=== PATIENT | female | born 1990 | race Caucasian/White ===

== ENCOUNTER 2023-10-09 09:30 | Emergency (ER) | payer BC, SELFPAY ==
[2023-10-09 09:40] VITALS: BP 119/69
[2023-10-09 09:56] LABS: % Basophils 0.9 % (0-2); % Eosinophils 1.5 % (0-6); % Immature Granulocytes 0.2 % (0-0.5); % Monocytes 8.9 % (1.7-9.3); % Neutrophils 46.5 % (42.2-75.2); Absolute Eosinophils 0.1 10^3/uL (0-0.7); Absolute Lymphocytes 1.9 10^3/uL (1.2-3.4); Absolute Monocytes 0.4 10^3/uL (0.1-0.6); Absolute Neutrophils 2.1 10^3/uL (1.4-6.5); Hematocrit 38.7 % (37.0-47.0); Hemoglobin 13.7 g/dL (12.0-16.0); Mean Corp Hgb Conc. 35.4 g/dL (33.0-37.0); Mean Corpuscular Hgb 31.1 pg (27.0-31.0); Mean Platelet Volume 9.9 fL (7.4-10.4); Nucleated Red Blood Cells % 0 %; Platelet Count 187 10^3/uL (130-400); Red Cell Dist. Width 12.1 % (11.5-14.5); White Blood Cell Count 4.6 10^3/uL (4.8-10.8)
[2023-10-09 10:09] LABS: HCG, Serum Qualitative Screen Negative
[2023-10-09 10:27] LABS: ALT (SGPT) 14 U/L (0-35); AST (SGOT) 21 U/L (14-36); Albumin 4.4 g/dl (3.5-5.0); Alkaline Phosphatase 52 U/L (38-126); Blood Urea Nitrogen 14 mg/dl (7-17); Calcium 9.3 mg/dl (8.4-10.2); Carbon Dioxide 25 mmol/L (22-30); Chloride 103 mmol/L (98-107); Glucose 95 mg/dl (70-99); Potassium 3.9 mmol/L (3.5-5.1); Sodium 133 mmol/L (135-145); Total Bilirubin 0.6 mg/dl (0.2-1.3); eGFR > 60.00
--- NOTE | 2023-10-09 14:39 | ED.GENMED ---
History of Present Illness
General
Chief Complaint: Headache
Source: patient
Exam Limitations: none
Time Seen by Provider: 10/09/23 11:29
Nursing documentation reviewed up to this point in time: agreed with
Travel History
Have you had any contact with someone who has COVID-19?: No
Do you have any symptoms of coronavirus? Fever > 100 degrees, chills, cough, shortness of breath, sore throat, loss of taste or smell, muscle aches, or headache?: No
History of Present Illness
History of Present Illness:
Patient is a 33-year-old female who presents to the emergency department complaining of vertigo that seems to be constant and pressure and fullness in her head. Patient denies any visual or speech difficulties. Patient said nausea but no vomiting.
Patient denies any nasal congestion, sore throat, fever or chills. Patient denies any tenderness or decreased hearing. This has been going on for the last 6 days continued. Patient does feel off balance like she has been on a boat. Patient has
minimal photophobia. Patient has a history of migraines and gets them about once a year. Patient had 1 about 10 days ago and it lasted till 1 week ago. Patient does not take anything for them. However since that time she has had the same
symptoms.
Past History
Past History
ED Past Medical History: Other (Migraine)
ED Past Surgical History: Tonsilectomy
Social History
Tobacco: Non-smoker
Personal:
Living: with family
Review of Systems
Review of Systems
All Other Systems: ROS reviewed and negative except as documented in HPI and ROS
Constitutional: Reports no symptoms
EENT: Reports other (Pressure and head)
Respiratory: Reports no symptoms
Cardiac: Reports no symptoms
ABD/GI: Reports nausea; Denies abdominal pain, vomiting, diarrhea, constipated or anorexia
Musculoskeletal: Reports no symptoms
Skin: Reports no symptoms
Neurological: Reports dizzy; Denies headache, weakness or numbness
Hematologic/Lymphatic: Reports no symptoms
Psychiatric: Reports no symptoms
Phy Exam
Physical Exam
Physical Exam:
Physical Exam
General: No apparent distress, alert and appropriate, well nourished, well hydrated
HENT: Normocephalic, supple with no lymphadenopathy, no thyromegaly. TMs intact and clear. Oropharynx clear. Nares patent and clear
Eyes: Clear sclera, conjuctiva without injection, extraocular muscles intact, pupils equal reactive to light, no nystagmus
Heart: Regular rhythm and rate. No S3, S4. No murmur. No NVD, bruit
Lungs: No respiratory distress, no stridor, lung sounds clear and equal bilaterally
Abdomen: Soft, nontender, BS good
Neuro: Alert and oriented x 3, CN II - XII intact, no motor focality, no cerebellar dysfunction
Skin: no rash
Psychiatric: well kept. interactive and cooperative
Extremities: No edema, cyanosis, tenderness
Scores
Heart Failure Risk
Heart Failure Risk Score: Not Applicable
Heart Score for Chest Pain Patients
STEMI patient?: Not applicable
Withdrawal Assessment of Alcohol
Withdrawal Assessment Completed?: Not applicable
Course
Orders/Labs/Results
Orders:
Orders
10/09/23 09:43
Test Result ONCE
10/09/23 09:49
Complete Blood Count/With Diff Urgent
Comprehensive Metabolic Panel Urgent
HCG, Serum Qualitative Screen Urgent
10/09/23 12:02
CT Head W/o Iv Contrast Urgent
Comment:
Reason For Exam: vertigo and overall fogginess
Abnormal Lab Results
10/09/23
09:49
WBC 4.6 L 10^3/uL
(4.8-10.8)
MCH 31.1 H pg
(27.0-31.0)
Sodium 133 L mmol/L
(135-145)
10/09/23 09:49
10/09/23 09:49
Vital Signs
Initial and Last Documented VS:
Initial Vital Signs
Temp Pulse Resp BP Pulse Ox
97.7 F 54 16 119/69 100
10/09/23 09:40 10/09/23 09:40 10/09/23 09:40 10/09/23 09:40 10/09/23 09:40
Last Documented Vital Signs
Temp Pulse Resp BP Pulse Ox
97.7 F 54 16 119/69 100
10/09/23 09:40 10/09/23 09:40 10/09/23 09:40 10/09/23 09:40 10/09/23 09:40
*Radiology
Radiology exam reviewed: radiology read reviewed (CT unremarkable)
*Pulse Oximetry
Patient hypoxic: no
*EKG
Interpreted by ED Provider?: NA
*Manufacturing Industrial Engineer Interpretation
Rate: Manufacturing Industrial Engineer- N/A
*Critical Care Note
Total Time (30-74mins, 75-104mins- exclusive of procedures): Not Applicable
ED Attending Note
-
Portions of this chart may have been created with voice recognition software.� Occasional wrong word or��sound alike� substitutions may have occurred due to the inherent limitations of voice recognition software.
Discharge Plan
Departure
Patient Disposition: Home (Routine Discharge)
Date of Disposition: 10/09/23
Time of Disposition: 14:45
Patient with high blood pressure during this ER visit?: No
Condition: Good
Covid-19: Not Applicable
Discharge Problem:
Vertigo
Instructions: Vertigo (a Type of Dizziness) (DC)
Prescriptions:
New
meclizine 25 mg tablet
25 mg PO TID PRN (Reason: dizziness) Qty: 20 0RF
fluticasone propionate [Flonase Allergy Relief] 50 mcg/actuation spray,suspension
1 spray intranasal DAILY Qty: 16 0RF
No Action
[id number]-xddlbmcth [ One (with food blend)] 1 EACH tablet
1 tab PO DAILY
acetaminophen 325 MG tablet
650 mg PO Q4HPRN PRN (Reason: mild pain) 0RF
sennosides-docusate sodium 1 TABLET tablet
1 tab PO DAILYPRN PRN (Reason: constipation) 0RF
ibuprofen 600 MG tablet
400 mg PO Q4HPRN PRN (Reason: moderate pain/cramps) 0RF
Referrals:
Osmar Tyson MD [Active] - Call in 1-3 days for appt
NONE,* [Family Provider] -
Interventions
Interventions:
*Risk Screen - Suicide Last Done: 10/09/23 13:36
*General Assessment Last Done: 10/09/23 13:36
*Neglect/Abuse Screening Last Done: 10/09/23 13:36
*ED COVID-19 Vaccine History Last Done: 10/09/23 09:40
ED- Neurological Assessment Last Done: 10/09/23 13:36
== END 2023-10-09 14:58 | disposition home or self-care (01) ==
LOC: EMR 09:30
PROVIDERS: Emergency Medicine; EMERGENCY PHYSICIAN Emergency Medicine
DX: R42 Dizziness and giddiness (principal)
CPT/HCPCS: 99284; 70450; 80053; 84703; 85025

== ENCOUNTER → 2024-04-13 09:42 | Outpatient (REF) | payer BC, SELFPAY | LOC: WDC 09:42 | PROVIDERS: ATTENDING PHYSICIAN Nurse Practitioner Family | DX: N64.4 Mastodynia (principal) | CPT/HCPCS: 76642; 77062; 77066 ==

== ENCOUNTER 2024-11-08 10:01 | Emergency (ER) | payer BC, SELFPAY ==
[2024-11-08 10:11] VITALS: BP 120/75
--- NOTE | 2024-11-08 11:04 | ED.GENMED ---
History of Present Illness
<Lizbeth Dykes PA-C - Last Filed: 11/08/24 13:16>
General
Chief Complaint: Skin Problem
Source: patient
Exam Limitations: none
Time Seen by Provider: 11/08/24 11:03
Nursing documentation reviewed up to this point in time: agreed with
History of Present Illness
History of Present Illness:
This is a 34-year-old female with no past medical history who presents emergency department today with concerns of facial pain and swelling for the past 3 days. Patient states that 3 days ago, she woke up with her right eyelids swollen shut.
Patient states that her eyes were not red at the time. Patient then progressed to have swelling of both eyelids and she started to have some swelling of the face as well as the days progressed. Patient states that she feels a fullness to her face
and describes the pain as a burning sensation. Patient denies any use of any allergens or denies any use of any new moisturizer/face washes. Patient denies any trouble swallowing any trouble breathing, any intraoral lesions. Patient denies any
paresthesias of the tongue or lips. Patient states that she thought she could be having allergic reaction to something however she has been using Benadryl without relief. She denies any fevers or chills, nausea vomiting, chest pain. Of note, 2
months ago her daughter was hospitalized for status scalded skin syndrome.
Past History
<Lizbeth Dykes PA-C - Last Filed: 11/08/24 13:16>
Past History
ED Past Medical History: Other (Migraine)
ED Past Surgical History: Tonsilectomy
Social History
Tobacco: Non-smoker
Personal:
Living: with family
Review of Systems
<Lizbeth Dykes PA-C - Last Filed: 11/08/24 13:16>
Review of Systems
All Other Systems: ROS reviewed and negative except as documented in HPI and ROS
Phy Exam
<Lizbeth Dykes PA-C - Last Filed: 11/08/24 13:16>
Physical Exam
Physical Exam:
General: Patient is well appearing and in no acute distress; non-toxic
Skin: Warm and dry, warmth and mild erythema noted to cheeks bilaterally
Head: Normocephalic, atraumatic, mild tenderness to palpation noted over the frontal sinuses
Eyes: Sclera non-icteric. EOMs intact.
Cardiac: Regular rate
Peripheral Vascular:
Pulm: Normal respiratory effort
Abdomen: No abdominal tenderness
Musculoskeletal:
Neuro: CN II-XII intact, no focal neurologic deficits.
Psychiatric: Appropriate mood and affect.
Course
<Lizbeth Dykes PA-C - Last Filed: 11/08/24 13:16>
Vital Signs
Initial and Last Documented VS:
Initial Vital Signs
Temp Pulse Resp BP Pulse Ox
98.5 F 62 18 120/75 98
11/08/24 10:11 11/08/24 10:11 11/08/24 10:11 11/08/24 10:11 11/08/24 10:11
Last Documented Vital Signs
Temp Pulse Resp BP Pulse Ox
98.5 F 77 18 122/65 99
11/08/24 10:11 11/08/24 12:19 11/08/24 12:19 11/08/24 12:19 11/08/24 12:19
<Neil Soto MD - Last Filed: 11/08/24 13:03>
Vital Signs
Initial and Last Documented VS:
Initial Vital Signs
Temp Pulse Resp BP Pulse Ox
98.5 F 62 18 120/75 98
11/08/24 10:11 11/08/24 10:11 11/08/24 10:11 11/08/24 10:11 11/08/24 10:11
Last Documented Vital Signs
Temp Pulse Resp BP Pulse Ox
98.5 F 77 18 122/65 99
11/08/24 10:11 11/08/24 12:19 11/08/24 12:19 11/08/24 12:19 11/08/24 12:19
<Lizbeth Dykes PA-C - Last Filed: 11/08/24 13:16>
MDM/Problems Addressed
Differential Diagnosis Includes:
ddx include contact dermatitis, allergic rhinitis, sinusitis, cellulitis
MDM/Problems Addressed:
34-year-old female presents emergency department today with concerns of facial pain and swelling. She has had no fevers or chills. Has been using antihistamines without relief. On physical exam she does have some mild erythema noted to the cheeks
and some tenderness palpation of the frontal sinuses. She also has some mild swelling. Concern for potential developing cellulitis versus sinusitis. Will cover with Augmentin and 5 days of steroids. Advised follow-up with primary, return
precautions discussed. Patient stable for discharge.
Chronic conditions affecting care:
n/a
Acute Exacerbation and/or Progression of Chronic Illness:
n/a
<Lizbeth Dykes PA-C - Last Filed: 11/08/24 13:16>
*Pulse Oximetry
Patient hypoxic: no
*Critical Care Note
Total Time (30-74mins, 75-104mins- exclusive of procedures): Not Applicable
Data Reviewed
Review of Other/Old Records Reveals: Records (Reviewed ER physician documentation from 10/09/2023 patient seen for vertigo and speech difficulties and fullness in her head, she had CAT scan head which was normal discharged with meclizine)
Source: patient and records
<Lizbeth Dykes PA-C - Last Filed: 11/08/24 13:16>
Patient Management
Escalation/DeEscalation of care consider admission/obs:
admit not indicated, pt stable for discharge
ED Attending Note
<Lizbeth Dykes PA-C - Last Filed: 11/08/24 13:16>
-
Portions of this chart may have been created with voice recognition software.� Occasional wrong word or��sound alike� substitutions may have occurred due to the inherent limitations of voice recognition software.
<Neil Soto MD - Last Filed: 11/08/24 13:03>
ED Attending Note
Patient seen and examined by attending physician: Yes
I performed the substantive portion of visit, reviewed & personally made and approve the management plan that is documented in note by myself or MICAELA.: Yes
ED Attending Note:
Bilateral periorbital swelling into the cheeks the last 24 hours. Some burning pain to the cheeks. No visual issues no eye drainage. No pain with eye motion. No general headache. No fever.
On exam patient is nontoxic in no distress. There is minimal swelling to both cheeks over the zygoma. Very very minimal periorbital swelling bilaterally. No cellulitis. No drainage. Conjunctiva are normal. No pain with eye motion. No pain
with maxillary tapping. Neck is supple. No neck swelling.
Impression is most likely an allergic issue. To consider sinusitis with facial swelling secondary to sinusitis. Steroids H1 blockers antibiotics to follow-up. No indication for radiologic testing at this time
Discharge Plan
Departure
Patient Disposition: Home (Routine Discharge)
Date of Disposition: 11/08/24
Time of Disposition: 12:03
Patient with high blood pressure during this ER visit?: No
Condition: Good
Discharge Problem:
Rash and nonspecific skin eruption, Facial pain
Instructions: Sinusitis in adults, Skin Rash (DC), BLOOD PRESSURE
Prescriptions:
New
prednisone 20 mg tablet
40 mg PO DAILY 5 Days Qty: 10 0RF
amoxicillin-pot clavulanate 875-125 mg tablet
1 tab PO BID 10 Days Qty: 20 0RF
No Action
[id number]-hqnv-ED-iatllb-rqqjvvzay [ One (with food blend)] 1 EACH tablet
1 tab PO DAILY
acetaminophen 325 MG tablet
650 mg PO Q4HPRN PRN (Reason: mild pain) 0RF
sennosides-docusate sodium 1 TABLET tablet
1 tab PO DAILYPRN PRN (Reason: constipation) 0RF
ibuprofen 600 MG tablet
400 mg PO Q4HPRN PRN (Reason: moderate pain/cramps) 0RF
meclizine 25 mg tablet
25 mg PO TID PRN (Reason: dizziness) Qty: 20 0RF
fluticasone propionate [Flonase Allergy Relief] 50 mcg/actuation spray,suspension
1 spray intranasal DAILY Qty: 16 0RF
Referrals:
NONE,* [Family Provider] -
Activity Restrictions/Additional Instructions:
Augmentin has been sent to your pharmacy. You can take 1 tablet twice daily for 10 days. Prednisone has also been sent to your pharmacy. You can take 40 mg once daily for 5 days.
Please follow-up with your primary care provider.
PLEASE RETURN TO EMERGENCY DEPARTMENT SHOULD YOU DEVELOP CHEST PAIN, SHORTNESS OF BREATH, TROUBLE SWALLOWING, INTRAORAL LESIONS, PEELING OF THE SKIN, OR ANY OTHER SIGNS OR SYMPTOMS WORRISOME TO YOU.
Interventions
Interventions:
*Risk Screen - Suicide Last Done: 11/08/24 10:11
*General Assessment Last Done: 11/08/24 10:11
*Neglect/Abuse Screening Last Done: 11/08/24 10:11
ED- Fall Risk Assessment Last Done: 11/08/24 12:19
*ED COVID-19 Vaccine History Last Done: 11/08/24 10:11
*Nursing Disposition Last Done: 11/08/24 12:19
ED-Skin Assessment Last Done: 11/08/24 11:03
Discharge Date and Time
Discharge Date/Time: 11/08/24 12:19
Print Language: MONGOLIAN
[2024-11-08 12:19] VITALS: BP 122/65
== END 2024-11-08 12:19 | disposition home or self-care (01) ==
LOC: EMR 10:01
PROVIDERS: EMERGENCY PHYSICIAN Emergency Medicine
DX: R21 Rash and other nonspecific skin eruption (principal); R51.9 Headache, unspecified
CPT/HCPCS: 99282